=== PATIENT | female | born 1940 | race Caucasian/White ===

== ENCOUNTER → 2017-12-09 | Outpatient (CLI) | payer MEDICARE ==
[~2017-12-09] MED LIST: CYCL30DR OU; METR1KIT TP; SERT25TA5 PO; synthroid PO; vitamin b6 PO
== END | disposition home or self-care (01) ==
LOC: RAH 16:58
PROVIDERS: ATTEND Urology
DX: K57.90 Diverticulosis of intestine, part unspecified, without perforation or abscess without bleeding (principal); E03.9 Hypothyroidism, unspecified; K21.9 Gastro-esophageal reflux disease without esophagitis
CPT/HCPCS: 74176

== ENCOUNTER → 2021-03-28 | Outpatient (CLI) | payer MEDICARE ==
[~2021-03-28] MED LIST changes: +SERT-438 PO; -SERT25TA5 PO
== END | disposition home or self-care (01) ==
LOC: RAH 12:51
PROVIDERS: ATTEND Physical Medicine & Rehabilitation
DX: M51.26 Other intervertebral disc displacement, lumbar region (principal); M48.061 Spinal stenosis, lumbar region without neurogenic claudication; R25.2 Cramp and spasm
CPT/HCPCS: 72148

== ENCOUNTER 2025-05-30 07:33 | Day surgery (SDC) | payer MEDICARE ==
[2025-05-28 13:04] VITALS: BP 131/62; PULSE 68; RESP 17; TEMP 97.3
[2025-05-28 13:23] LABS: IMMATURE GRANULOCYTE ABSOLUTE 0.02 K/uL (0-1); NUCLEATED RED BLOOD CELLS 0.0 % (0.0-0.19); PLATELET COUNT (AUTO) 231 K/uL (130-400); RED BLOOD CELL COUNT(AUTO) 4.47 MIL/uL (4.00-5.50); RED CELL DISTRIBUTION WIDTH 12.3 % (11.0-15.5); WHITE BLOOD COUNT (AUTO) 5.9 K/uL (4.8-10.8)
[2025-05-28 13:32] LABS: INR 1.08 (0.85-1.15)
--- NOTE | 2025-05-28 13:41 | EKG ---
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
[2025-05-28 13:44] LABS: CREATININE 0.7 mg/dL (0.5-1.0); GLOMERULAR FILTR. RATE CALC 84.0 mL/min (>90); GLUCOSE,RANDOM 111.0 mg/dL (70-105); SODIUM SERUM 143.0 mmol/L (136-145); UREA NITROGEN, BLOOD 17.0 mg/dL (7-18)
[2025-05-28 13:47] LABS: APPEARANCE,URINE CLEAR (CLEAR); GLUCOSE, URINE (UA) NEGATIVE (NEGATIVE); LEUKOCYTE ESTERASE ,URINE NEGATIVE Leu/uL (NEGATIVE); NITRATE,URINE NEGATIVE (NEGATIVE); OCCULT BLOOD,URINE NEGATIVE (NEGATIVE)
[2025-05-28 13:49] LABS: ADD UA MICROSCOPIC NO
--- NOTE | 2025-05-28 23:24 | HMCIMG ---
EXAM: CR Chest, single view CLINICAL HISTORY: preop COMPARISON: Prior radiograph dated 19 November 2003 FINDINGS: Mild emphysematous changes in the lung parenchyma. The lungs show no infiltrate or other acute findings. No pleural effusion or pneumothorax. The cardiomediastinal silhouette is within normal limits. No acute osseous abnormality. Degenerative changes in the mid and lower thoracic spine. IMPRESSION: Mild emphysematous changes in the lung parenchyma. No acute cardiopulmonary pathology is evident. /[place]
[~2025-05-30] VITALS: Ht 172.7 cm; Wt 54.4 kg
[2025-05-30] VITALS (8 sets, daily range): BP systolic 109–137; BP diastolic 47–64; PULSE 64–78; RESP 10–16; TEMP 97.7–98.1
[~2025-05-30 07:33] MED LIST changes: +ATENOLOL PO; +B COMPLEX PO; +ESOM40CA66 PO; +LEVO75TA4 PO; -SERT-438 PO; +VITAMIN D3 PO; -synthroid PO
[2025-05-30] MEDS: 0.9%NACL 1000ML 1,000 ML IV SCH (08:14)
[2025-05-30] MEDS ORDERED: IOHEXOL 350 MG/ML 100ML INFUS..BTL IV ONE (09:35)
[2025-05-30] MEDS ORDERED: HEParin-NS 1,000 UNIT/500 ML 1,000 ML IV ONE (09:35)
[2025-05-30] MEDS ORDERED: LIDOCAINE HCL 400MG/20ML VIAL ONE (09:35)
[2025-05-30] MEDS ORDERED: MIDAZOLAM HCL 1 MG/ML 2ML VIAL ONE (09:49)
--- NOTE | 2025-05-30 10:21 | PRN ---
Cath Procedure Report CATH PROCEDURE REPORT CARDIAC CATHETERIZATION REPORT Date of Service: May 30, 2025 After informed consent the patient was prepped and draped in the usual fashion. She received a total of 15 cc of 2% xylocaine. A six [place] sheath was introduced into the right femoral artery using modified Seldinger technique. A Giovany four right six [place] diagnostic catheter was advanced over guidewire to the aortic root. Wire was engaged into the [place] right coronary artery which was visualized. Catheter was removed and a Giovany four left six [place] diagnostic catheter was advanced over guidewire to the aortic root. Wire was removed and catheter engaged into the left main coronary artery. The left coronary system was visualized multiple planes the catheter was removed. A pi gtail catheter was then advanced over guidewire to the aortic root. The catheter was advanced across the aortic valve. Hemodynamics measured and a pullback with continuous hemodynamic monitoring was performed and catheter was removed. A sheathogram performed and six [place] Angio-Seal closure device applied. The entire procedure was well tolerated without complications. Findings: The right coronary artery is a nondominant vessel free of obstruction. The left main coronary artery is a short vessel free of obstruction gives rise to a normal LAD. The proximal LAD has some calcification but no obstruction. The 1st diagonal artery is free of obstruction. The circumflex artery is a dominant vessel it gives rise to a very large branching obtuse marginal artery and a smaller posterolateral branch. All of which are free of obstruction. Summary: Calcification of the proximal LAD without obstruction. Otherwise normal coronary arteries. We will plan on outpatient pulmonary evaluation. Report dictated by JALYN Thompson MD, MD May 30, 2025 10:21
--- NOTE | 2025-05-30 11:35 | NUR ---
Patient has done fine without issue. No evidence of bleeding, bruising or hematoma. VS wnl Pedal pulses intact to BLES. Updated Ms. Roy (freiend) per patient request. [facility]
--- NOTE | 2025-05-30 12:59 | NUR ---
Full and complete discharge instructions given to Patient and Family both verbally and in writing. Explained Angiogram procedure precautions and follow up. Right groin site clean dry and intact. No evidence of bleeding, bruising or hematoma. Pedal pulses intact to BLE's. All questions answered. PIV removed with catheter tip intact. Friend at bedside appearing supportive. Friend to POV with to home.
== END 2025-05-30 13:20 | disposition home or self-care (01) ==
LOC: DAH 07:33
PROVIDERS: ATTEND Internal Medicine Cardiovascular Disease
DX: R94.39 Abnormal result of other cardiovascular function study (principal); I25.118 Atherosclerotic heart disease of native coronary artery with other forms of angina pectoris; I25.84 Coronary atherosclerosis due to calcified coronary lesion; E03.9 Hypothyroidism, unspecified; R06.09 Other forms of dyspnea; I45.10 Unspecified right bundle-branch block; Z79.01 Long term (current) use of anticoagulants; Z20.822 Contact with and (suspected) exposure to COVID-19; Z88.8 Allergy status to other drugs, medicaments and biological substances; Z85.828 Personal history of other malignant neoplasm of skin; Z98.890 Other specified postprocedural states; Z79.899 Other long term (current) drug therapy
CPT/HCPCS: 80048; 83880; 85025; 85610; 85730; 81003; 36415; 71045; 93005; 93458; C1894; C1760; Q9965; J3490; J1644; Q9967; A4215; A4222; A4221; A4663; A4216; A4606; A4223 ×3; J2250